=== PATIENT | female | born 1935 | race Caucasian/White ===

== ENCOUNTER 2017-09-19 20:45 | Emergency (ER) | payer OTHER ==
[2017-09-19] MEDS ORDERED: ONDANSETRON 4 MG/2 ML VIAL IVPUSH ONE (21:19)
[2017-09-19] MEDS ORDERED: SODIUM CHLORIDE 0.9% 1000 ML INFUS.BAG IV ONE ×2 (21:19→22:43)
[2017-09-19 21:21] VITALS: BP 96/57; PULSE 84; TEMP 97.3; BMI 24.2
[2017-09-19] MEDS ORDERED: FAMOTIDINE IV 20 MG/12 ML VIAL IVPUSH ONE (21:21)
--- NOTE | 2017-09-19 21:31 | PDOC ---
History of Present Illness - General Chief Complaint: Injury Stated Complaint: INJURY Time Seen by Provider: 09/19/17 21:18 History Source: Patient, Family Exam Limitations: No Limitations - History of Present Illness Initial Comments: 09/19/17 21:23 Patient is a 82-year-old female with history of A. fib on Coumadin, pacemaker, TIA, BIBA called by the daughter for a fall. Daughter states that patient had 2 glasses of wine to drink today for dinner, got up went to the bathroom and fell backward hitting her head. Patient has no complaints of headache, however complains of lower back pain since a fall. States she's had low back pain issues from. Daughter states patient is very confused since the fall. Daughter states that patient had sustained a prior fall 2 weeks ago. Was checked out at her local hospital and noted to have no bleed or fractures. She sustained some bruising and at that time. PMD: Dr. Dominguez in [place] PMHX: as above PSOCHX: lives alone in [place] ALL: NKDA GENERAL/CONSTITUTIONAL: [No fever or chills. No weakness. No weight change.] HEAD, EYES, EARS, NOSE AND THROAT: [No change in vision. No ear pain or discharge. No sore throat.] CARDIOVASCULAR: [No chest pain or shortness of breath.] RESPIRATORY: [No cough, wheezing, or hemoptysis.] GASTROINTESTINAL: [No nausea, vomiting, diarrhea or constipation. No rectal bleeding.] GENITOURINARY: [No dysuria, frequency, or change in urination.] MUSCULOSKELETAL: [No joint or muscle swelling or pain. No neck or back pain.] SKIN AND BREASTS: [No rash or easy bruising.] NEUROLOGIC: [No headache, vertigo, loss of consciousness, or loss of sensation.] PSYCHIATRIC: [No depression or anxiety.] ENDOCRINE: [No increased thirst. No abnormal weight change.] HEMATOLOGIC/LYMPHATIC: [No anemia, easy bleeding, or history of blood clots.] ALLERGIC/IMMUNOLOGIC: [No hives or skin allergy. No latex allergy.] GENERAL: [The patient is awake, alert, and fully oriented, in acute distress, actively vomiting, AOB.] HEAD: [Normal with no signs of trauma.] EYES: [Pupils equal, round and reactive to light, extraocular movements intact, sclera anicteric, conjunctiva clear.] ENT: [Ears normal, nares patent, oropharynx clear without exudates. Moist mucous membranes.] NECK: [Normal range of motion, supple without lymphadenopathy, JVD, or masses.] LUNGS: [Breath sounds equal, clear to auscultation bilaterally. No wheezes, and no crackles.] HEART: [Regular rate and rhythm, normal S1 and S2 without murmur, rub.] ABDOMEN: [Soft, nontender, normoactive bowel sounds. No guarding, no rebound. No masses.] EXTREMITIES: [Normal range of motion, no edema. No clubbing or cyanosis. No cords, erythema, or tenderness.] BACK: mild paralumbar tenderness NEUROLOGICAL: [(+) opthomoplegia (+) slurred speech, gait not tested, mild somnolence PSYCH: [Normal mood, normal affect.] SKIN: [Warm, Dry, normal turgor, (+) bruising to the left upper back, (-) lesions noted.] Past History - Past Medical History Allergies/Adverse Reactions: Allergies Allergy/AdvReac Type Severity Reaction Status Date / Time No Known Allergies Allergy Verified 08/17/15 18:55 Home Medications: Ambulatory Orders Atorvastatin Ca [Lipitor -] 20 mg PO DAILY 08/17/15 Esomeprazole Mag Trihydrate [Nexium] 20 mg PO DAILY 08/17/15 Levothyroxine [Synthroid -] 50 mcg PO DAILY 08/17/15 Paroxetine HCl [Paxil] 10 mg PO DAILY 08/17/15 Warfarin Na [Coumadin] 2.5 mg PO HS 08/17/15 Cardiac Disorders: Yes (A-FIB) COPD: No Hypercholesterolemia: Yes Thyroid Disease: Yes - Surgical History Appendectomy: Yes Cardiac Surgery: Yes (PACEMAKER) - Suicide/Smoking/Psychosocial Hx Smoking History: Never smoked Hx Alcohol Use: Yes (WINE) Drug/Substance Use Hx: No Substance Use Type: None *Physical Exam - Vital Signs Last Vital Signs Temp Pulse Resp BP Pulse Ox 97.3 F L 84 18 96/57 95 09/19/17 21:16 09/19/17 21:16 09/19/17 21:16 09/19/17 21:16 09/19/17 21:16 ED Treatment Course - LABORATORY CBC & Chemistry Diagram: 09/19/17 21:40 09/19/17 21:40 Medical Decision Making - Medical Decision Making 09/19/17 21:31 Patient is a 82-year-old female with history of A. fib on Coumadin, pacemaker, TIA, BIBA called by the daughter for a fall hitting head. Patient on coumdin but has AOB. will get labs, ekg, ct head reassess 09/19/17 22:44 Pacemaker rythm 88, RAD, with capture INR 1.76 etoh leg 187 09/20/17 01:27 Patient Name: MACIEJ CAMPBELL THIS IS A PRELIMINARY REPORT FROM IMAGING DIRECTOR OF INTELLIGENCE DATE OF SERVICE: 2017-09-19 23:55:28 IMAGES: 134 EXAM: CT HEAD HISTORY: Closed head injury on Coumadin COMPARISON: None. FINDINGS: Involutional changes. No hemorrhage. No mass. No detectable infarct. Osseous structures are intact THIS DOCUMENT HAS BEEN ELECTRONICALLY SIGNED Gaudencio Diaz MD 09/20/2017 00:34 EST M.D. Please call Imaging Director Regulatory Affairs [phone]) with questions. INTERPRETING RADIOLOGIST: Gaudencio Diaz MD Electronically Signed: Sep 20, 2017 12:35AM EST 0127 Patient now alert and oriented x 3, 09/20/17 02:02 Patient now c/o left side/rib pain xray obtained no fx noted I discussed the physical exam findings, ancillary test results and final diagnoses with the patient. I answered all of the patient's questions. The patient was satisfied with the care received and felt comfortable with the discharge plan and treatment plan. The Patient agrees to follow up with the primary care physician within 24-72 hours. *DC/Admit/Observation/Transfer Diagnosis at time of Disposition: Subtherapeutic international normalized ratio (INR) Alcohol intoxication Qualifiers: Complication of substance-induced condition: with unspecified complication Qualified Code(s): F10.929 - Alcohol use, unspecified with intoxication, unspecified Head injury Qualifiers: Encounter type: initial encounter Qualified Code(s): S09.90XA - Unspecified injury of head, initial encounter Contusion of rib on left side Qualifiers: Encounter type: initial encounter Qualified Code(s): S20.212A - Contusion of left front wall of thorax, initial encounter - Discharge Dispostion Disposition: HOME Condition at time of disposition: Stable - Referrals Referrals: STAFF,NOT ON [Primary Care Provider] - - Patient Instructions Printed Discharge Instructions: DI for Rib Contusion, DI for Closed Head Injury Additional Instructions: Your Discharge Instructions: You must call primary care physician within 24 hours to arrange follow-up. Return to the Emergency Department with any new, persistent or worsening symptoms, for fever, chills, SOB, dizziness or any other concerning changes that may occur. Follow-up with your PMD about the level of the INR, they may need to increase her dose of by mouth Coumadin. - Post Discharge Activity
[2017-09-19 22:23] LABS: BASO # 0.1 # (0.1-1); BASO % 0.9 % (0-2.0); EOS # 0.2 # (0-4.5); EOS % 2.6 % (0-4.5); LYMPH # 0.8 (8-40); MCH 28.1 pg (25.7-33.7); MCHC 33.5 g/dl (32.0-36.0); MEAN CELL VOLUME 83.8 fl (80-96); MEAN PLT VOLUME 7.4 fl (7.5-11.1); MONO # 0.3 # (3.8-10.2); NEUT # 4.9 # (42.8-82.8); PLATELET COUNT 289 K/MM3 (134-434); RDW 14.5 % (11.6-15.6); WHITE BLOOD COUNT 6.2 K/mm3 (4.0-10.0)
[2017-09-19 22:35] LABS: INR 1.76 (0.82-1.09); PROTHROMBIN TIME (PATIENT) 19.9 SEC (9.98-11.88)
[2017-09-19 22:38] LABS: ACTIVATED PTT 32.1 SECONDS (26.9-34.4)
[2017-09-19 22:40] LABS: ALBUMIN 3.9 g/dl (3.4-5.0); ALK PHOS 134 U/L (45-117); ANION GAP 9 (8-16); BILIRUBIN,TOTAL 0.2 mg/dL (0.2-1.0); CALCIUM 8.8 mg/dL (8.5-10.1); CO2 23 mmol/L (21-32); CREATININE 1.4 mg/dL (0.55-1.02); GLUCOSE,RANDOM 111 mg/dL (74-106); SGOT/AST 19 U/L (15-37); SGPT/ALT 29 U/L (12-78); TOT PROT 7.2 g/dl (6.4-8.2)
[2017-09-19] MEDS ORDERED: MAG HYDROX/AL HYDROX/SIMETH 355 ML ORAL.SUSP PO ONE (22:44)
[2017-09-19 22:48] LABS: CPK 75 IU/L (26-192); TROPONIN I < 0.02 ng/ml (0.00-0.05)
--- NOTE | 2017-09-20 09:19 | PDOC ---
Patient Follow-up (Call Back) - Post ED Follow - Up Condition at time of discharge: Stable Disposition at time of original discharge: HOME Reason for Call Back: Radiology (Receive a phone call from Dr. Torres radiologist would noted multiple left rib fractures. 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 Called the son and spoke to him in detail stating patient does require a repeat x-ray and monitoring of her INR level secondary to fractures to observe for hematoma versus pneumonia. He states [place] with the other daughter. I told him to stop by the ER today and apple picking supervisor copies of the ER visit and imaging will be placed on disc.)
--- NOTE | 2017-09-20 13:09 | EKG ---
Test Reason : Blood Pressure : / mmHG Vent. Rate : 088 BPM Atrial Rate : 088 BPM P-R Int : 000 ms QRS Dur : 172 ms QT Int : 472 ms P-R-T Axes : 064 089 -51 degrees QTc Int : 571 ms Atrial-sensed ventricular-paced rhythm ABNORMAL ECG NO PREVIOUS ECGS AVAILABLE Confirmed by MD Claudio, Hernan ([id number]) on 09/20/2017 1:09:12 PM Referred By: Confirmed By:Hernan Snyder MD
== END 2017-09-20 02:55 | disposition home or self-care (01) ==
LOC: JER 20:45
PROC: 3E0337Z Introduction of Electrolytic and Water Balance Substance into Peripheral Vein, Percutaneous Approach (ICD-10-PCS; principal; 2017-09-19)
PROC: 3E033GC Introduction of Other Therapeutic Substance into Peripheral Vein, Percutaneous Approach (ICD-10-PCS; 2017-09-19)
DX: D68.9 Coagulation defect, unspecified (principal); F10.929 Alcohol use, unspecified with intoxication, unspecified; S09.90XA Unspecified injury of head, initial encounter; S20.212A Contusion of left front wall of thorax, initial encounter; W18.39XA Other fall on same level, initial encounter; Y93.89 Activity, other specified; Y92.9 Unspecified place or not applicable
CPT/HCPCS: 36415; 70450-TC; 71101-TC; 80053; 80307; 82550; 84484; 85025; 85610; 85730; 93005; 93010; 99281-25

== ENCOUNTER 2022-09-23 09:19 | Emergency (ER) | payer OTHER, BC ==
[2022-09-23 09:29] VITALS: BP 143/82; PULSE 77; RESP 18; TEMP 97.7; BMI 20.7
[2022-09-23 10:23] LABS: HEMATOCRIT 39.1 % (32.4-45.2); HEMOGLOBIN 13.6 G/dL (10.7-15.3); MCH 29.2 pg (25.7-33.7); MCHC 34.7 g/dl (32.0-36.0); MEAN CELL VOLUME 84.1 fl (80-96); MEAN PLT VOLUME 8.3 fl (7.5-11.1); PLATELET COUNT 285.5 10^3/uL (134-434); RBC 4.65 10^6/uL (3.60-5.2); WHITE BLOOD COUNT 7.1 10^3/uL (4.0-10.8)
[2022-09-23 10:28] LABS: PLATELET ESTIMATE ADEQUATE
[2022-09-23 10:29] LABS: ALBUMIN 3.9 g/dl (3.4-5.0); CALCIUM 9.5 mg/dl (8.5-10); CREATININE 1.2 mg/dl (0.55-1.3); TOT PROT 6.7 g/dl (6.4-8.2)
[2022-09-23 10:35] LABS: EPITHELIAL CELLS RARE /hpf
== END 2022-09-23 11:45 | disposition home or self-care (01) ==
LOC: SUPCPDRO 09:19 → FER 09:19
DX: N30.00 Acute cystitis without hematuria (principal)
CPT/HCPCS: 36415; 70450-TC; 71045-TC-FY; 80053; 81003; 81015; 84484; 85027; 87086; 87186; 93005; 99285-25

== ENCOUNTER 2023-03-08 10:51 | Inpatient (IN) | payer OTHER, BC ==
[2023-03-08 11:24] VITALS: BMI 20.7
[2023-03-08] MEDS ORDERED: ACETAMINOPHEN 650 MG/20.3 ML ORAL SOLUTION (CUPS) PO ONE (11:46)
[2023-03-08] MEDS ORDERED: ACETAMINOPHEN 325 MG TABLET (FP) PO ONE (11:46)
[2023-03-08] MEDS ORDERED: ACETAMINOPHEN 325 MG TABLET (FP) ONE ×2 (11:50→23:00)
[2023-03-08 14:41] LABS: INR 1.89 (0.83-1.09); PROTHROMBIN TIME (PATIENT) 21.8 SEC (9.7-13.0)
[2023-03-08 14:43] LABS: HEMATOCRIT 40.8 % (32.4-45.2); HEMOGLOBIN 13.9 G/dL (10.7-15.3); MCH 29.6 pg (25.7-33.7); MEAN CELL VOLUME 86.9 fl (80-96); MEAN PLT VOLUME 8.1 fl (7.5-11.1); PLATELET COUNT 233.1 10^3/uL (134-434); RBC 4.69 10^6/uL (3.60-5.2); RDW 15.4 % (11.6-15.6); WHITE BLOOD COUNT 8.1 10^3/uL (4.0-10.8)
[2023-03-08 14:47] LABS: ALBUMIN 4.1 g/dl (3.4-5.0); BILIRUBIN,TOTAL 1.2 mg/dl (0.2-1); CALCIUM 9.4 mg/dl (8.5-10); CREATININE 1.1 mg/dl (0.55-1.3); TOT PROT 7.2 g/dl (6.4-8.2)
[2023-03-08 14:52] LABS: POTASSIUM 5.3 mmol/L (3.5-5.1)
[2023-03-08] MEDS: ACETAMINOPHEN 325 MG TABLET (FP) PO PRN (22:00)
[2023-03-08] MEDS ORDERED: CHLORHEXIDINE GLUCONATE 4% CLEANSER FOR DECOLONIZATION TP SCH (22:00)
[2023-03-08] MEDS: MUPIROCIN 2% TOPICAL OINTMENT FOR DECOLONIZATION NS SCH (22:00)
[2023-03-09 07:12] LABS: BASO % 0.9 % (0-2.0); EOS % 4.5 % (0-4.5); LYMPH % 17.2 % (8-40); MCH 28.4 pg (25.7-33.7); MCHC 33.4 g/dl (32.0-36.0); MEAN CELL VOLUME 85.2 fl (80-96); MONO % 10.9 % (3.8-10.2); NEUT % 66.5 % (42.8-82.8); PLATELET COUNT 242 10^3/uL (134-434); RBC 4.22 M/mm3 (3.60-5.2); RDW 14.3 % (11.6-15.6); WHITE BLOOD COUNT 5.8 K/mm3 (4.0-10.0)
[2023-03-09 07:26] LABS: POTASSIUM 4.1 mmol/L (3.5-5.1)
[2023-03-09 07:29] LABS: CALCIUM 9.1 mg/dL (8.5-10.1)
[2023-03-09 07:30] LABS: BLOOD UREA NITROGEN 19.7 mg/dL (7-18); MAGNESIUM 2.3 mg/dL (1.8-2.4)
[2023-03-09 07:33] LABS: PHOSPHOROUS 3.1 mg/dL (2.5-4.9)
[2023-03-09 07:34] LABS: TOT PROT 5.8 g/dl (6.4-8.2)
[2023-03-09] MEDS: MUPIROCIN 2% TOPICAL OINTMENT FOR DECOLONIZATION NS SCH (09:32)
[2023-03-09] MEDS ORDERED: LEVOTHYROXINE SODIUM 100 MCG 5 ML VIAL IVPUSH SCH (10:00)
[2023-03-09] MEDS ORDERED: PARoxetine HCL 10 MG TABLET PO SCH (10:00)
[2023-03-09] MEDS: ACETAMINOPHEN 325 MG TABLET (FP) PO PRN ×2 (16:28→21:52)
[2023-03-09] MEDS ORDERED: CHLORHEXIDINE GLUCONATE 4% CLEANSER FOR DECOLONIZATION TP SCH (22:00)
[2023-03-09] MEDS ORDERED: MUPIROCIN 2% TOPICAL OINTMENT FOR DECOLONIZATION NS SCH (22:00)
[2023-03-09] MEDS ORDERED: ATORVASTATIN CA 20 MG TABLET (FP) PO SCH ×2 (22:00)
[2023-03-10] MEDS ORDERED: LEVOTHYROXINE NA 75 MCG TABLET (FP) PO SCH ×2 (06:00)
[2023-03-10 08:34] LABS: BASO % 1.3 % (0-2.0); EOS % 5.5 % (0-4.5); HEMATOCRIT 33.1 % (32.4-45.2); MCH 28.6 pg (25.7-33.7); MCHC 33.3 g/dl (32.0-36.0); MEAN CELL VOLUME 85.8 fl (80-96); MONO % 11.3 % (3.8-10.2); NEUT % 67.9 % (42.8-82.8); PLATELET COUNT 226 10^3/uL (134-434); RBC 3.86 M/mm3 (3.60-5.2); RDW 14.1 % (11.6-15.6); WHITE BLOOD COUNT 5.5 K/mm3 (4.0-10.0)
[2023-03-10 08:49] LABS: CALCIUM 9.3 mg/dL (8.5-10.1)
[2023-03-10] MEDS: ACETAMINOPHEN 325 MG TABLET (FP) PO PRN (08:49)
[2023-03-10 08:50] LABS: MAGNESIUM 2.3 mg/dL (1.8-2.4)
[2023-03-10 08:52] LABS: CREATININE 0.9 mg/dL (0.55-1.3)
[2023-03-10 08:54] LABS: BILIRUBIN,TOTAL 0.8 mg/dL (0.2-1); TOT PROT 5.6 g/dl (6.4-8.2)
[2023-03-10 09:15] VITALS: BP 131/76; PULSE 75; RESP 18; TEMP 97.8
[2023-03-10] MEDS ORDERED: PARoxetine HCL 10 MG TABLET PO SCH (10:00)
== END 2023-03-10 13:52 | disposition home or self-care (01) | DRG 83 ==
LOC: FER 10:51 → JICU 15:39 → J7W 03-09 16:18
PROVIDERS: ADMIT Internal Medicine Pulmonary Disease; ATTEND Internal Medicine
DX: S06.5XAA Traumatic subdural hemorrhage with loss of consciousness status unknown, initial encounter (principal); G91.0 Communicating hydrocephalus; S42.032A Displaced fracture of lateral end of left clavicle, initial encounter for closed fracture; E78.5 Hyperlipidemia, unspecified; E03.9 Hypothyroidism, unspecified; M25.512 Pain in left shoulder; I73.00 Raynaud's syndrome without gangrene; K21.9 Gastro-esophageal reflux disease without esophagitis; I48.0 Paroxysmal atrial fibrillation; Z95.0 Presence of cardiac pacemaker; F03.90 Unspecified dementia, unspecified severity, without behavioral disturbance, psychotic disturbance, mood disturbance, and anxiety; W08.XXXA Fall from other furniture, initial encounter; Y92.092 Bedroom in other non-institutional residence as the place of occurrence of the external cause; Z86.73 Personal history of transient ischemic attack (TIA), and cerebral infarction without residual deficits
CPT/HCPCS: 0241U-QW; 36415; 70450-TC; 71046-TC-FY; 73000-TC-LT-FY; 73030-TC-LT-FY; 73130-TC-LT-FY; 80053; 83735; 84100; 84439; 84443; 85025; 85027; 85610; 86850; 86900; 86901; 93005; 97116-GP; 97162-GP; 99291